=== PATIENT | female | born 1995 | race Two or more races ===

== ENCOUNTER 2019-04-18 22:02 | Emergency (ER) | payer MEDICAID ==
[~2019-04-18] VITALS: Ht 162.6 cm; Wt 94.3 kg
--- NOTE | 2019-04-18 22:09 | NUR ---
ED Nurse Note: Patient walked in from home d/t nausea vomiting intermittently for 2 weeks. Patient aao x 4 and ambulatory. Patient placed in gown and quality assurance monitor final. No acute distress at this time.
[2019-04-18 22:10] VITALS: BP 115/53
--- NOTE | 2019-04-18 22:37 | NUR ---
ED Nurse Note: ERMD at bedside
--- NOTE | 2019-04-18 22:40 | NUR ---
ED Nurse Note: Pt ambulating to restroom to provide urine sample in stable condition
--- NOTE | 2019-04-18 22:56 | NUR ---
ED Nurse Note: Urine sample sent to lab
[2019-04-18 23:06] LABS: APPEARANCE,URINE SLIGHTLY CLOUDY; BILIRUBIN, URINE NEGATIVE (NEGATIVE); COLOR,URINE PALE YELLOW; GLUCOSE, URINE (UA) NEGATIVE (NEGATIVE); KETONES,URINE NEGATIVE (NEGATIVE); LEUKOCYTE ESTERASE ,URINE 1+ (NEGATIVE); NITRITE,URINE NEGATIVE (NEGATIVE); PH,URINE 7 (4.5-8.0); PROTEIN,URINE NEGATIVE (NEGATIVE); UROBILINOGEN,URINE NORMAL MG/DL (0.0-1.0)
[2019-04-18 23:16] LABS: BASOPHILS % (AUTO) 0.6 % (0.0-2.0); EOSINOPHILS % (AUTO) 1.5 % (0.0-3.0); HEMATOCRIT 40.4 % (37.0-47.0); HEMOGLOBIN 13.7 G/DL (12.0-16.0); LYMPHOCYTES % (AUTO) 25.1 % (20.0-45.0); MEAN CORPUSCULAR VOLUME 84 FL (80-99); MONOCYTES % (AUTO) 5.1 % (1.0-10.0); NEUTROPHILS % (AUTO) 67.7 % (45.0-75.0); PLATELET COUNT 292 K/UL (150-450); RED BLOOD COUNT 4.84 M/UL (4.20-5.40); RED CELL DISTRIBUTION WIDTH 11.6 % (11.6-14.8)
[2019-04-18 23:29] LABS: ANION GAP 9 mmol/L (5-15); BLOOD UREA NITROGEN 13 mg/dL (7-18); CALCIUM 9.5 MG/DL (8.5-10.1); CARBON DIOXIDE 31 MMOL/L (21-32); CHLORIDE 100 MMOL/L (98-107); CREATININE 0.7 MG/DL (0.55-1.30); POTASSIUM 3.7 MMOL/L (3.5-5.1); SODIUM 140 MMOL/L (136-145)
[2019-04-18 23:39] LABS: ALANINE AMINOTRANSFERASE 139 U/L (12-78); ALBUMIN 3.8 G/DL (3.4-5.0); ALBUMIN/GLOBULIN RATIO 0.9 (1.0-2.7); ALKALINE PHOSPHATASE 87 U/L (46-116); ASPARTATE AMINO TRANSFERASE 59 U/L (15-37); BILIRUBIN,TOTAL 0.3 MG/DL (0.2-1.0)
--- NOTE | 2019-04-19 01:01 | Emergency Room Report ---
History of Present Illness General Chief Complaint: Nausea, Vomiting, and Diarrhea Source: Patient Present Illness HPI 23-year-old female presents to emergency room with nausea vomiting and diarrhea. Patient reports symptoms started 1 week ago. Today she had 2 episodes of nonbloody nonbilious vomiting and one episode of nonbloody diarrhea. Patient also reports associated central abdominal pain cramping in nature. She reports pain is intermittent. 8 out of 10 in severity. She tried to take Pepto-Bismol with no improvement today. She denies any recent travel. She denies any fevers. She denies any recent surgeries. Allergies: Coded Allergies: CEPHALEXIN (Verified Allergy, Unknown, 04/18/19) Nursing Documentation-[facility] Past Medical History: No Stated History Review of Systems Constitutional: Denies: chills, fever Respiratory: Denies: cough, shortness of breath Cardiovascular: Denies: chest pain, palpitations Gastrointestinal: Reports: abdominal pain, diarrhea, nausea, vomiting Genitourinary: Denies: hematuria, pain Musculoskeletal: Denies: joint swelling Skin: Denies: rash, lesions Neurological: Denies: headache, dizziness Physical Exam Vital Signs Date Time Temp Pulse Resp B/P (MAP) Pulse Ox O2 Delivery O2 Flow Rate FiO2 04/18/19 22:05 97.9 62 17 121/60 (80) 97 Room Air Sp02 EP Interpretation: reviewed General Appearance: well appearing, no apparent distress, non-toxic Head: normocephalic, atraumatic Eyes: bilateral eye normal inspection ENT: hearing grossly normal, EOM grossly intact, moist mucus membranes Neck: supple Respiratory: lungs clear, normal breath sounds, no respiratory distress, speaking full sentences Cardiovascular #1: regular rate, rhythm, normal capillary refill Cardiovascular #2: 2+ radial (R), 2+ radial (L) Gastrointestinal: soft, no mass, no organomegaly, no peritonitis, non-distended , no guarding, no hernia Rectal: deferred Musculoskeletal: moves extm spontaneously, no lower extremity edema Neurologic: grossly normal Psychiatric: mood/affect normal Skin: warm/dry, normal turgor Medical Decision Making ER Course 23-year-old female presents with nausea vomiting diarrhea abdominal pain cramping in nature. Exam is within normal limits with no signs of rebound, guarding, acute abdomen. ED course: We will perform lab testing and give patient antiemetics, IV fluids, and reassess. Laboratory Tests Test 04/18/19 22:34 04/18/19 22:42 White Blood Count 12.0 K/UL (4.8-10.8) H Red Blood Count 4.84 M/UL (4.20-5.40) Hemoglobin 13.7 G/DL (12.0-16.0) Hematocrit 40.4 % (37.0-47.0) Mean Corpuscular Volume 84 FL (80-99) Mean Corpuscular Hemoglobin 28.2 PG (27.0-31.0) Mean Corpuscular Hemoglobin Concent 33.8 G/DL (32.0-36.0) Red Cell Distribution Width 11.6 % (11.6-14.8) Platelet Count 292 K/UL (150-450) Mean Platelet Volume 5.7 FL (6.5-10.1) L Neutrophils (%) (Auto) 67.7 % (45.0-75.0) Lymphocytes (%) (Auto) 25.1 % (20.0-45.0) Monocytes (%) (Auto) 5.1 % (1.0-10.0) Eosinophils (%) (Auto) 1.5 % (0.0-3.0) Basophils (%) (Auto) 0.6 % (0.0-2.0) Sodium Level 140 MMOL/L (136-145) Potassium Level 3.7 MMOL/L (3.5-5.1) Chloride Level 100 MMOL/L (98-107) Carbon Dioxide Level 31 MMOL/L (21-32) Anion Gap 9 mmol/L (5-15) Blood Urea Nitrogen 13 mg/dL (7-18) Creatinine 0.7 MG/DL (0.55-1.30) Estimate Glomerular Filtration Rate > 60 mL/min (>60) Glucose Level 120 MG/DL (74-106) H Calcium Level 9.5 MG/DL (8.5-10.1) Total Bilirubin 0.3 MG/DL (0.2-1.0) Aspartate Amino Transferase (AST) 59 U/L (15-37) H Alanine Aminotransferase (ALT) 139 U/L (12-78) H Alkaline Phosphatase 87 U/L (46-116) Total Protein 8.1 G/DL (6.4-8.2) Albumin 3.8 G/DL (3.4-5.0) Globulin 4.3 g/dL Albumin/Globulin Ratio 0.9 (1.0-2.7) L Lipase 123 U/L (73-393) Urine Color Pale yellow Urine Appearance Slightly cloudy Urine pH 7 (4.5-8.0) Urine Specific [place] 1.015 (1.005-1.035) Urine Protein Negative (NEGATIVE) Urine Glucose (UA) Negative (NEGATIVE) Urine Ketones Negative (NEGATIVE) Urine Blood 4+ (NEGATIVE) H Urine Nitrite Negative (NEGATIVE) Urine Bilirubin Negative (NEGATIVE) Urine Urobilinogen Normal MG/DL (0.0-1.0) Urine Leukocyte Esterase 1+ (NEGATIVE) H Urine RBC 5-10 /HPF (0 - 2) H Urine WBC 0-2 /HPF (0 - 2) Urine Squamous Epithelial Cells Many /LPF (NONE/OCC) H Urine Bacteria Moderate /HPF (NONE) H Urine HCG, Qualitative Negative (NEGATIVE) Lab Results Impression Mild elevated WBC 12.0, mild ST elevation, mild ALT elevation, urinalysis positive for blood, 1+ leukocyte esterase, sample not clean-catch noted multiple epithelial cells Last Vital Signs Date Time Temp Pulse Resp B/P (MAP) Pulse Ox O2 Delivery O2 Flow Rate FiO2 04/18/19 22:10 97.9 69 19 115/53 99 Room Air Reevaluation Impression Patient reevaluated after medications. Reported much improvement of her symptoms. Patient p.o. challenged and tolerated water and crackers. Patient likely has episode of gastroenteritis. Recommend patient to follow-up with primary care doctor in 2 to 3 days for reevaluation. If patient develops fever , worsening symptoms or any new symptoms return to emergency room immediately. Disposition: HOME, SELF-CARE Condition: Stable Scripts Ondansetron (Zofran) 4 Mg Tablet 4 MG ORAL Q8H PRN for Nausea & Vomiting, #10 TAB 0 Refills Prov: Sagar Travis M.D. 04/19/19 Referrals: NON PHYSICIAN (PCP) Lexi Matthews [facility] Patient Instructions: Abdominal Pain, Adult, Nausea and Vomiting, Adult Additional Instructions: Follow-up with your primary care doctor or clinic in 2 to 3 days for reevaluation. Take antinausea medications as prescribed. 30 minutes prior to meals. Return to emergency room if you have fevers, nausea, vomiting, diarrhea, worsening abdominal pain or any new symptoms. Sagar Travis M.D. Apr 19, 2019 01:00
[2019-04-19] MEDS ORDERED: ZOFRAN4 MG ORAL (01:03)
[2019-04-19] MEDS ORDERED: Morphine Sulfate 2mg/ml Inj(IV/IM USE ONLY) IVP ONE (01:15)
[2019-04-19 01:25] VITALS: BP 114/53
--- NOTE | 2019-04-19 01:25 | NUR ---
ER DISCHARGE NOTE: Patient is cleared to be discharged per ERMD, pt is aox4, on room air, with stable vital signs. pt was given dc and prescription instructions, pt was able to verbalize understanding, pt id band and iv site removed without complications. pt is able to ambulate with steady gait. pt took all belongings. pt stable upon discharge.
== END 2019-04-19 01:25 | disposition home or self-care (01) ==
LOC: EMR 22:40
DX: R11.2 Nausea with vomiting, unspecified (principal); R19.7 Diarrhea, unspecified; Z88.8 Allergy status to other drugs, medicaments and biological substances
CPT/HCPCS: 36415; 80053; 81003; 81025; 83690; 85025; 87086; 96361; 96374; J2405; J7030; Z7502; 99284

== ENCOUNTER 2019-10-06 09:16 | Emergency (ER) | payer MEDICAID ==
[~2019-10-06] VITALS: Ht 162.6 cm; Wt 93.0 kg
[~2019-10-06 09:16] MED LIST: ZOFRAN4 MG ORAL
--- NOTE | 2019-10-06 09:27 | NUR ---
ED Nurse Note: Pt ambulated to ed c/o left pink eye since yesterday. pt denies itching, irritation, discharge. pt reports using red eye eye drops from OTC, but complains of burning when she uses drops.
[2019-10-06 09:29] VITALS: BP 102/64
--- NOTE | 2019-10-06 09:47 | Emergency Room Report ---
History of Present Illness General Chief Complaint: Eye Problems Source: Patient Present Illness HPI This patient states that she noted a little bit of redness in her left eye yesterday and this morning. She denies eye discharge, eye pain, headache, blurry vision or any other symptoms. She states it does feel slightly "gritty. " She denies knowing of getting anything in her eye or of anything blowing into her eye. She notes that she does get dry eyes and she did use some eyedrops that she bought [id number] the day before. She has no other complaints. Allergies: Coded Allergies: CEPHALEXIN (Verified Allergy, Unknown, 04/18/19) COVID-19 Screening Contact w/high risk pt: No Recent Travel to affected area: No Experienced COVID-19 symptoms?: No COVID-19 Testing performed TIE SAWYER: No Patient History Past Medical History: none Past Surgical History: none Pertinent Family History: none Social History: Denies: smoking, alcohol use, drug use Last Menstrual Period: 09/24/19 Now: No Reviewed Nursing Documentation: PMH: Agreed; PSxH: Agreed Nursing Documentation-PMH Past Medical History: No Stated History Review of Systems All Other Systems: negative except mentioned in HPI Physical Exam Vital Signs Date Time Temp Pulse Resp B/P (MAP) Pulse Ox O2 Delivery O2 Flow Rate FiO2 10/06/19 09:24 99.1 70 16 102/64 (77) 97 Room Air Sp02 EP Interpretation: reviewed, normal General Appearance: no apparent distress, alert, GCS 15, non-toxic Head: normocephalic, atraumatic Eyes: left eye other - Slight, almost unable to discern, mild conjunctival erythema. ; bilateral eye normal inspection, bilateral eye PERRL ENT: hearing grossly normal, no angioedema, normal voice Neck: normal inspection Respiratory: no respiratory distress, no retraction, no accessory muscle use, speaking full sentences Rectal: deferred Musculoskeletal: normal inspection, gait/station normal, non-tender Neurologic: alert, motor strength/tone normal, oriented x3, sensory intact, responsive, speech normal Psychiatric: judgement/insight normal, memory normal, mood/affect normal, no suicidal/homicidal ideation Skin: no rash, normal color Medical Decision Making Diagnostic Impression: Primary Impression: Acute conjunctivitis of left eye ER Course This patient may have very early viral conjunctivitis. The eye exam is very benign. I do not suspect corneal ulcer or keratitis. The patient does not wear contacts. The patient's vision is 20/20. I do not suspect an emergency eye condition. I will give the patient Ilotycin ointment as a precaution. She was instructed to only use it if her symptoms of her eye worsen and the discharge coming from her eye becomes thick and purulent. She indicated understanding. She is given close return precautions and follow-up instructions. Last Vital Signs Date Time Temp Pulse Resp B/P (MAP) Pulse Ox O2 Delivery O2 Flow Rate FiO2 10/06/19 09:29 99.1 74 16 102/64 97 Room Air Disposition: HOME, SELF-CARE Condition: Improved Patient Instructions: Viral Conjunctivitis Venita Plata DO Oct 06, 2019 09:47
[2019-10-06] MEDS ORDERED: ERYTHROMYCIN3.5 GM LEFT EYE (09:48)
[2019-10-06 09:49] VITALS: BP 105/67
--- NOTE | 2019-10-06 09:50 | NUR ---
ER DISCHARGE NOTE: Patient is cleared to be discharged per ERMD, pt is aox4, on room air, with stable vital signs. pt was given dc and prescription instructions, pt was able to verbalize understanding, pt id band removed. pt is able to ambulate with steady gait. pt took all belongings.
== END 2019-10-06 09:50 | disposition home or self-care (01) ==
LOC: EMR 09:45
DX: H10.32 Unspecified acute conjunctivitis, left eye (principal); Z88.8 Allergy status to other drugs, medicaments and biological substances
CPT/HCPCS: 99281